=== PATIENT | male | born 1955 | race African-American/Black ===

== ENCOUNTER 2017-01-06 23:14 | Emergency (ER) | payer OTHER ==
[~2017-01-06] VITALS: Ht 182.9 cm; Wt 116.6 kg
[2017-01-06] MEDS ORDERED: PHENOBARBITAL32.4 MG PO (23:33)
[2017-01-06] MEDS ORDERED: DILANTIN100 MG ORAL (23:33)
--- NOTE | 2017-01-06 23:43 | Emergency Room Report ---
History of Present Illness General Chief Complaint: Lower Extremity Injury Source: Patient Present Illness HPI Patient presents with bleeding from his right foot. He was scrubbing it with a pumice stone and it started to bleed. He put wash cloth on it and kept walking on it and lost a fair amount of blood. He doesn't have any dizziness or weakness at this time. He denies pain there. After he had hip surgery he had problems with his lower legs with swelling. The swelling is been going down recently. He has rashes on both of his legs. Initially treated with what sounds like Radha boots. He has a history of hypertension. He's not on any blood thinner. He does take phenobarb and Dilantin. The patient also is on medicine for blood pressure. He states his been within 10 years his last tetanus shot. No chest pain, SOB, URI sy, dysuria/hematuria, change in bowels. H/O seizures. Allergies: Coded Allergies: No Known Allergies (Unverified , 01/06/17) Patient History Past Medical History: see triage record Past Surgical History: other - hip surgery Social History: Denies: smoking Social History Narrative Works at [employer] - lives with mother Reviewed Nursing Documentation: PMH: Agreed, PSxH: Agreed Nursing Documentation-PMH Hx Seizures: Yes Review of Systems All Other Systems: negative except mentioned in HPI Physical Exam Vital Signs Date Time Temp Pulse Resp B/P Pulse Ox O2 Delivery O2 Flow Rate FiO2 01/06/17 23:20 98.2 83 18 114/82 96 Sp02 EP Interpretation: reviewed, normal General Appearance: well appearing, no apparent distress, obese Head: normocephalic, atraumatic Eyes: bilateral eye PERRL, bilateral eye normal inspection ENT: hearing grossly normal, normal voice, moist mucus membranes Neck: full range of motion, supple Respiratory: lungs clear, no respiratory distress, speaking full sentences Cardiovascular #1: regular rate, rhythm, edema - bilt R > L Cardiovascular #2: 2+ radial (L), 2+ dorsalis pedis (R) Gastrointestinal: normal bowel sounds, non tender, soft, overweight Musculoskeletal: gait/station normal, normal range of motion, no calf tenderness, swelling Neurologic: alert, oriented x3, normal gait, grossly normal Psychiatric: mood/affect normal, other - loquaceous Skin: rash - venous disease, other - bleeding from vein dorsum R foot Procedures Additional Procedure Procedure Narrative Bleeding area of foot prepped with betadiene. Pressure applied on either side of vein and dermabond used to stop bleeding. Tolerated well. Wound dressed. Medical Decision Making Diagnostic Impression: Primary Impression: Venous bleed R foot Additional Impressions: Venous insufficiency Renal insufficiency ER Course The patient presents with venous bleeding from a vein in his right foot. He is venous disease. He states he lost a lot of blood and therefore we will be checking a CBC and coags. The wound should respond to application of Dermabond. Labs unremarkable except for some renal insufficiency. Bleeding controlled and patient tolerated procedure well. Patient stable for outpatient observation and treatment. Laboratory Tests Test 01/07/17 00:00 White Blood Count 5.8 K/UL (4.8-10.8) Red Blood Count 4.86 M/UL (4.70-6.10) Hemoglobin 14.2 G/DL (14.2-18.0) Hematocrit 43.9 % (42.0-52.0) Mean Corpuscular Volume 90 FL (80-99) Mean Corpuscular Hemoglobin 29.1 PG (27.0-31.0) Mean Corpuscular Hemoglobin Concent 32.3 G/DL (32.0-36.0) Red Cell Distribution Width 13.8 % (11.6-14.8) Platelet Count 184 K/UL (150-450) Mean Platelet Volume 7.5 FL (6.5-10.1) Neutrophils (%) (Auto) 61.0 % (45.0-75.0) Lymphocytes (%) (Auto) 25.2 % (20.0-45.0) Monocytes (%) (Auto) 10.2 % (1.0-10.0) H Eosinophils (%) (Auto) 2.4 % (0.0-3.0) Basophils (%) (Auto) 1.2 % (0.0-2.0) Prothrombin Time 10.2 SEC (9.30-11.50) Prothrombin Time INR 1.0 (0.9-1.1) PTT 30 SEC (23-33) Sodium Level 139 mEQ/L (135-145) Potassium Level 4.5 mEQ/L (3.4-4.9) Chloride Level 98 mEQ/L (98-107) Carbon Dioxide Level 27 mEQ/L (20-30) Anion Gap 14 (5-15) Blood Urea Nitrogen 33 mg/dL (7-23) H Creatinine 1.4 mg/dL (0.7-1.2) H Estimate Glomerular Filtration Rate > 60 mL/min (>60) Glucose Level 105 mg/dL (74-106) Calcium Level 9.0 mg/dL (8.6-10.2) Total Bilirubin < 0.2 mg/dL (0.0-1.2) Aspartate Amino Transferase (AST) 16 U/L (5-40) Alanine Aminotransferase (ALT) 14 U/L (3-41) Alkaline Phosphatase 181 U/L (40-129) H Total Protein 7.3 g/dL (6.6-8.7) Albumin 4.1 g/dL (3.5-5.2) Globulin 3.2 g/dL Albumin/Globulin Ratio 1.2 (1.0-2.7) Last Vital Signs Date Time Temp Pulse Resp B/P Pulse Ox O2 Delivery O2 Flow Rate FiO2 01/07/17 01:00 98.2 82 18 114/82 96 Status: improved Disposition: HOME, SELF-CARE Condition: Improved Luis Carlos Morillo M.D. Jan 06, 2017 23:43
[2017-01-06] MEDS ORDERED: TdaP Vaccine 0.5ml Syr IM ONE (23:45)
[2017-01-07 00:18] LABS: BASOPHILS % (AUTO) 1.2 % (0.0-2.0); EOSINOPHILS % (AUTO) 2.4 % (0.0-3.0); LYMPHOCYTES % (AUTO) 25.2 % (20.0-45.0); MEAN CORPUSCULAR HEMOGLOBIN 29.1 PG (27.0-31.0); MEAN CORPUSCULAR HGB CONC 32.3 G/DL (32.0-36.0); MEAN CORPUSCULAR VOLUME 90 FL (80-99); MEAN PLATELET VOLUME 7.5 FL (6.5-10.1); MONOCYTES % (AUTO) 10.2 % (1.0-10.0); PLATELET COUNT 184 K/UL (150-450); RED BLOOD COUNT 4.86 M/UL (4.70-6.10); RED CELL DISTRIBUTION WIDTH 13.8 % (11.6-14.8); WHITE BLOOD COUNT 5.8 K/UL (4.8-10.8)
[2017-01-07 00:27] LABS: PROTHROMBIN TIME 10.2 SEC (9.30-11.50)
[2017-01-07 00:31] LABS: ALANINE AMINOTRANSFERASE 14 U/L (3-41); ALBUMIN/GLOBULIN RATIO 1.2 (1.0-2.7); ANION GAP 14 (5-15); ASPARTATE AMINO TRANSFERASE 16 U/L (5-40); CARBON DIOXIDE 27 mEQ/L (20-30); CHLORIDE 98 mEQ/L (98-107); CREATININE 1.4 mg/dL (0.7-1.2); GLOMERULAR FILTRATION RATE > 60 mL/min (>60); HEMOLYSIS 5; POTASSIUM 4.5 mEQ/L (3.4-4.9); SODIUM 139 mEQ/L (135-145); TOTAL PROTEIN 7.3 g/dL (6.6-8.7)
[2017-01-07 01:00] VITALS: BP 114/82
== END 2017-01-07 01:00 | disposition home or self-care (01) ==
LOC: EMR 23:59
DX: R58 Hemorrhage, not elsewhere classified (principal); I87.2 Venous insufficiency (chronic) (peripheral); N28.9 Disorder of kidney and ureter, unspecified; Z23 Encounter for immunization; G40.909 Epilepsy, unspecified, not intractable, without status epilepticus; Z79.899 Other long term (current) drug therapy
CPT/HCPCS: 36415; 80053; 85025; 85610; 85730; 90471; 90715; 99284